=== PATIENT | female | born 2000 | race Caucasian/White ===

== ENCOUNTER 2023-11-19 18:09 | Inpatient (IN) ==
[2023-11-19] MEDS ORDERED: Prochlorperazine 5 mg/ml 2 ml VIAL (10 mg) IV PRN (19:11)
[2023-11-19] MEDS ORDERED: Buffered Lidocaine 1% SYRIN 1 ml INTRADERM ONE (19:11)
[2023-11-19] MEDS: Dinoprostone 10 MG VAG.SUPP VAGINAL ONE (19:34)
[2023-11-19 20:13] LABS: Urine Benzodiazepine Screen None Detected (None Detect); Urine Opiates Screen None Detected (None Detect)
[2023-11-20 09:59] LABS: ABS Basophils 0.1 10^3/uL (0.0-0.1); ABS Eosinophils 0.2 10^3/uL (0.0-0.5); ABS Lymphocytes 2.1 10^3/uL (1.0-4.8); ABS Monocytes 0.7 10^3/uL (0.0-0.9); ABS Neutrophils 7.1 10^3/uL (1.5-7.6); ABS Nucleated RBC 0.01 10^3/ul; Eosinophil % 1.8 %; Hematocrit 37.6 % (35-45); Hemoglobin 12.8 g/dL (11.5-14.3); Lymphocyte % 20.9 %; Mean Corpuscular Hemoglobin 30.1 pg (27-33); Mean Corpuscular Hgb Conc 34.1 g/dL (31-36); Mean Corpuscular Volume 88.5 fL (80-97); Mean Platelet Volume 9.7 fL (7.5-11.2); Nucleated Red Blood Cells % 0.1 %/100WBC (0.0-0.8); Platelet Count 124 10^3/uL (150-450); Red Blood Count 4.25 10^6/uL (3.63-4.92); Red Cell Distribution Width 14.8 % (12-17); White Blood Count 10.1 10^3/uL (3.8-11.8)
[2023-11-20] MEDS: Oxytocin in LR 20,000 MILLI.UNIT/1,000 ML BAG IV SCH (10:49)
[2023-11-20] MEDS: Lactated Ringers 1000 ml BAG 1,000 ML IV SCH (10:49)
[2023-11-20] MEDS: Lactated Ringers 1000 ml BAG 1,000 ML IV ONE (15:11)
[2023-11-20] MEDS: OBEPIDURAL (200 ML) 200 ML EPIDURAL ONE (15:40)
[2023-11-20] MEDS ORDERED: Phenylephrine 40 mcg/mL 10mL (400mcg) SYRINGE IV PUSH PRN ×2 (15:50)
[2023-11-20] MEDS ORDERED: Sodium Citrate/Citric Acid LIQ 15 ML UDC PO PRN (15:50)
[2023-11-20 17:03] LABS: Urine Appearance Turbid; Urine Bilirubin Negative (Negative); Urine Blood 1+ (Negative); Urine Color Light-Yellow; Urine Glucose Negative (Negative); Urine Ketones Negative (Negative); Urine Nitrite Negative (Negative); Urine Protein Negative (Negative); Urine Specific Gravity 1.015 (1.002-1.030); Urine Urobilinogen Negative (Negative); Urine pH 7.5 (5.0-8.0)
[2023-11-20 17:23] LABS: Urine Bacteria Absent /HPF (Absent); Urine Red Blood Cell 3+(>10/hpf) /HPF (0-Trace); Urine White Blood Cell Trace(0-5/hpf) /HPF (0-Trace)
[2023-11-20] MEDS: Carboprost Tromethamine 250 mcg 1 ml VIAL ONE (22:09)
[2023-11-20] MEDS: Famotidine IV 10 MG/ML 2 ml VIAL (20 mg) IV SLOW PU ONE (22:18)
[2023-11-20] MEDS: Methylergonovine 0.2 mg AMPULE 1 ml AMP ONE (22:47)
[2023-11-20] MEDS: Lidocaine 1% VIAL 10 MG/ML 30 ML VIAL INJ PRN (23:15)
[2023-11-20] MEDS: ceFAZolin 2 GM/50 ML BAG IV ONE (23:16)
[2023-11-20] MEDS ORDERED: Glycerin ADULT 2.4 gm SUPP PR PRN (23:44)
[2023-11-20] MEDS ORDERED: Lactated Ringers 1000 ml BAG 1,000 ML IV SCH (23:45)
[2023-11-20] MEDS ORDERED: Ondansetron 4 mg VIAL 2 MG/ML 2 ml VIAL IV PRN (23:49)
[2023-11-21 05:30] LABS: Hematocrit 30.9 % (35-45); Hemoglobin 10.7 g/dL (11.5-14.3); Mean Corpuscular Hgb Conc 34.6 g/dL (31-36); Mean Corpuscular Volume 86.9 fL (80-97); Red Blood Count 3.55 10^6/uL (3.63-4.92); Red Cell Distribution Width 14.7 % (12-17); White Blood Count 13.7 10^3/uL (3.8-11.8)
[2023-11-21 05:46] LABS: ABS Basophils 0.1 10^3/uL (0.0-0.1); ABS Eosinophils 0.1 10^3/uL (0.0-0.5); ABS Lymphocytes 1.6 10^3/uL (1.0-4.8); ABS Monocytes 1.6 10^3/uL (0.0-0.9); ABS Neutrophils 10.3 10^3/uL (1.5-7.6); ABS Nucleated RBC 0.02 10^3/ul; Eosinophil % 0.4 %; Lymphocyte % 11.9 %; Mean Platelet Volume 9.4 fL (7.5-11.2); Nucleated Red Blood Cells % 0.1 %/100WBC (0.0-0.8); Platelet Count 99 10^3/uL (150-450)
[2023-11-21] MEDS: Dibucaine 1% OINT 28.35 GM TUBE PR PRN (08:03)
[2023-11-21] MEDS: Witch Hazel PAD JAR TOPICAL PRN (08:03)
[2023-11-21] MEDS: Oxytocin in LR 20,000 MILLI.UNIT/1,000 ML BAG IV SCH (08:31)
[2023-11-21 11:11] LABS: ABS Basophils 0.1 10^3/uL (0.0-0.1); ABS Eosinophils 0.1 10^3/uL (0.0-0.5); ABS Lymphocytes 1.8 10^3/uL (1.0-4.8); ABS Monocytes 1.1 10^3/uL (0.0-0.9); Eosinophil % 0.6 %; Hematocrit 28.2 % (35-45); Hemoglobin 9.7 g/dL (11.5-14.3); Lymphocyte % 14.9 %; Mean Corpuscular Hemoglobin 29.9 pg (27-33); Mean Corpuscular Hgb Conc 34.4 g/dL (31-36); Mean Corpuscular Volume 86.9 fL (80-97); Mean Platelet Volume 9.2 fL (7.5-11.2); Platelet Count 98 10^3/uL (150-450); Red Blood Count 3.25 10^6/uL (3.63-4.92); Red Cell Distribution Width 15.1 % (12-17); White Blood Count 12.1 10^3/uL (3.8-11.8)
[2023-11-21 11:20] LABS: Platelet Count 92 10^3/ul (150-450)
[2023-11-21 11:34] LABS: Activated Partial Thrombo Time 28.4 seconds (26.0-38.0); INR 1.05 (0.83-1.13)
[2023-11-21 11:35] LABS: Schistocytes ABSENT
[2023-11-21] MEDS: Lactated Ringers 1000 ml BAG 1,000 ML IV SCH (15:03)
[2023-11-21] MEDS: Lidocaine 1.5% EPI 1:200,000 30 ML SDV ONE (15:03)
[2023-11-21] MEDS: Lactated Ringers 1000 ml BAG 1,000 ML IV ONE (15:03)
[2023-11-21] MEDS: OBEPIDURAL (200 ML) 200 ML EPIDURAL SCH (15:03)
[2023-11-21] MEDS: Lidocaine 1% VIAL 10 MG/ML 30 ML VIAL ONE (15:04)
[2023-11-21] MEDS: ceFAZolin 2 GM PREMIX 2 GM/50 ML BAG ONE (15:04)
[2023-11-22 07:53] VITALS: BP 111/59
[2023-11-22] MEDS: Measles, Mumps,Rubella VACC 0.5 ML/VIAL SUBCUT ONE (13:57)
== END 2023-11-22 14:30 | disposition home or self-care (01) | DRG 560 ==
LOC: MCHOBOUT 18:09 → MCHOB 19:07
PROVIDERS: ADMIT Registered Nurse; ATTEND Advanced Practice Midwife